=== PATIENT | female | born 1995 ===

== ENCOUNTER 2018-10-27 23:44 | Emergency (ER) | payer OTHER, SELFPAY ==
[2018-10-28] MEDS ORDERED: PEPCID PO ONE (00:45)
[2018-10-28] MEDS ORDERED: BANOPHEN PO ONE (00:45)
[2018-10-28] MEDS ORDERED: DELTASONE PO ONE (00:45)
--- NOTE | 2018-10-28 01:30 | Emergency Department Report ---
ED General Adult HPI - General Chief complaint: Allergic Reaction Stated complaint: POSS ALLERGIC REACTION Time Seen by Provider: 10/28/18 01:24 Source: patient, RN notes reviewed Mode of arrival: Ambulatory Limitations: No Limitations - History of Present Illness Initial comments: This is a pleasant 23-year-old female who is not known to this provider previously. She reports that she is not , and reports no chronic medical conditions with the exception of shellfish intolerance. The patient consumed calamari,earlier on yesterday, and shortly thereafter, developed sensation of throat swelling, and lipid feeling numb. This is now resolved. She has no complaints at this time. She reports no physical pain at this time. She reports that she was not aware that this particular food was considered shellfish. -: Sudden Severity scale (0 -10): 0 Consistency: now resolved Improves with: none Worsens with: none - Related Data Previous Rx's Medication Instructions Recorded Last Taken Type EPINEPHrine [Epipen 2-Koby] 0.3 mg IM DAILY PRN #2 ml 10/28/18 Unknown Rx Famotidine [Pepcid] 20 mg PO BID #10 tablet 10/28/18 Unknown Rx diphenhydrAMINE [Benadryl] 50 mg PO Q8HR PRN #20 capsule 10/28/18 Unknown Rx Allergies Allergy/AdvReac Type Severity Reaction Status Date / Time shellfish derived Allergy Unknown Verified 10/27/18 23:47 ED Review of Systems ROS: Stated complaint: POSS ALLERGIC REACTION Other details as noted in HPI Constitutional: denies: fever Eyes: denies: eye discharge ENT: denies: ear pain, epistaxis, congestion Respiratory: denies: cough Cardiovascular: denies: chest pain Musculoskeletal: denies: back pain Skin: pruritus Neurological: denies: weakness Psychiatric: denies: anxiety ED Past Medical Hx - Past Medical History Previous Medical History?: Yes Additional medical history: irritable bowel syndrome - Surgical History Past Surgical History?: No - Social History Smoking Status: Never Smoker Substance Use Type: Alcohol - Medications Home Medications: Home Medications Medication Instructions Recorded Confirmed Last Taken Type EPINEPHrine [Epipen 2-Koby] 0.3 mg IM DAILY PRN #2 ml 10/28/18 Unknown Rx Famotidine [Pepcid] 20 mg PO BID #10 tablet 10/28/18 Unknown Rx diphenhydrAMINE [Benadryl] 50 mg PO Q8HR PRN #20 capsule 10/28/18 Unknown Rx ED Physical Exam - General Limitations: No Limitations General appearance: alert, in no apparent distress - Head Head exam: Present: atraumatic, normocephalic - Eye Eye exam: Present: normal appearance, EOMI. Absent: nystagmus - ENT ENT exam: Present: normal exam, normal orophraynx, mucous membranes moist, normal external ear exam, other (the patient is speaking in full sentences. There is no stridor, there is no dysphonia.) - Neck Neck exam: Present: normal inspection, full ROM. Absent: tenderness, meningismus - Respiratory Respiratory exam: Present: normal lung sounds bilaterally. Absent: respiratory distress - Cardiovascular Cardiovascular Exam: Present: regular rate, normal rhythm, normal heart sounds. Absent: bradycardia, tachycardia, irregular rhythm, systolic murmur, diastolic murmur, rubs, gallop - GI/Abdominal GI/Abdominal exam: Present: soft. Absent: distended, tenderness, guarding, rebound, rigid, pulsatile mass - Extremities Exam Extremities exam: Present: normal inspection, full ROM, other (2+ pulses noted in the bilateral upper, lower extremities. Compartments soft. No long bony tenderness. The pelvis is stable.). Absent: pedal edema, joint swelling, calf tenderness - Back Exam Back exam: Present: normal inspection, full ROM. Absent: tenderness, CVA tenderness (R), paraspinal tenderness, vertebral tenderness - Neurological Exam Neurological exam: Present: alert, normal gait, other (Extraocular movements intact. Tongue midline. No facial droop. Facial sensation intact to light touch in the V1, V2, V3 distribution bilaterally. 5 and 5 strength in 4 extremities.. Sensation is intact to light touch in 4 extremities.). Absent: motor sensory deficit - Psychiatric Psychiatric exam: Present: normal affect, normal mood - Skin Skin exam: Present: warm, dry, intact, normal color. Absent: rash ED Course Vital Signs 10/27/18 10/28/18 10/28/18 23:50 00:01 00:06 Temperature 98.9 F 98.4 F Pulse Rate 96 H 101 H 105 H Respiratory 18 17 20 Rate Blood Pressure 134/81 114/74 114/74 Blood Pressure 114/74 [Left] O2 Sat by Pulse 99 99 99 Oximetry ED Medical Decision Making - Lab Data Vital Signs 10/27/18 10/28/1810/28/19 23:50 00:01 00:06 Temperature 98.9 F 98.4 F Pulse Rate 96 H 101 H 105 H Respiratory 18 17 20 Rate Blood Pressure 134/81 114/74 114/74 Blood Pressure 114/74 [Left] O2 Sat by Pulse 99 99 99 Oximetry - Medical Decision Making Differential diagnosis, including but not limited to: Shellfish allergy, shellfish and tolerance Assessment and plan: 23-year-old female with clinically resolved allergic reaction to presumed shellfish ingestion. Patient somewhat anxious, but on my examination, is not tachycardic. She has no stridor or dysphonia, no external cutaneous skin lesions, and appears to be in no acute distress. She will be discharged with as needed epinephrine pen, as needed Benadryl, and as needed Pepcid. She is instructed to not consume shellfish. She can follow up with an outpatient career transition specialist for specialized skin testing, and evaluation for potential desensitization. Critical care attestation.: If time is entered above; I have spent that time in minutes in the direct care of this critically ill patient, excluding procedure time. ED Disposition Clinical Impression: History of allergy to shellfish Disposition: DC-01 TO HOME OR SELFCARE Is pt being admited?: No Does the pt Need Aspirin: No Condition: Good Instructions: Anaphylaxis (ED), Food Allergy (ED) Additional Instructions: Avoid consumption of shellfish, crustations,, and take the medications as needed/directed. Follow up with an career transition specialist for specialized skin testing to determine what specific food groups patient is allergic/intolerance to, and to determine if patient is a candidate for allergy desensitization therapy. Follow up with an career transition specialist within the next 4-6 weeks. Use the medications as needed or directed. Use the epinephrine pen only if patient develops inability to speak, inability to breathe, loss of consciousness. Please return to the emergency room right away with new, worsening or different symptoms. Referrals: BRITTNEY LUCAS MD [Referring] - 3-5 Days BAILEY GANDHI MD [Referring] - 3-5 Days [facility] [Provider Group] - 3-5 Days [facility] [Provider Group] - 3-5 Days
[2018-10-28 01:59] VITALS: BP 98/52
== END 2018-10-28 01:40 | disposition home or self-care (01) ==
LOC: ED 23:44
DX: T78.1XXA Other adverse food reactions, not elsewhere classified, initial encounter (principal); X58.XXXA Exposure to other specified factors, initial encounter; Z91.013 Allergy to seafood
CPT/HCPCS: 99282; J7512; Q0163

== ENCOUNTER 2019-10-31 16:29 | Emergency (ER) | payer SELFPAY ==
--- NOTE | 2019-10-31 17:27 | XRay Report ---
CHEST 2 VIEWS INDICATION / CLINICAL INFORMATION: CP. COMPARISON: None available. FINDINGS: SUPPORT DEVICES: None. HEART / MEDIASTINUM: No significant abnormality. LUNGS / PLEURA: No significant pulmonary or pleural abnormality. No pneumothorax. ADDITIONAL FINDINGS: No significant additional findings. IMPRESSION: 1. No acute findings. Signer Name: Montana Quintero MD Signed: 10/31/2019 5:23 PM Workstation Name: [id number]
--- NOTE | 2019-10-31 17:51 | Emergency Department Report ---
ED Chest Pain HPI - General Chief Complaint: Chest Pain Stated Complaint: CHEST PAIN L ARM TINGLE Time Seen by Provider: 10/31/19 17:34 Source: patient Mode of arrival: Ambulatory Limitations: No Limitations - History of Present Illness Initial Comments: Patient is a 24-year-old female presents emergency room with complaints of left- sided chest pain that began at 3:30 PM today. She describes the pain as a pressure. She states that she also has tingling in the left arm. She states that she felt lightheaded. She denies any cough, fever, leg swelling, shortness of breath, pleuritic chest pain, nausea, vomiting, diarrhea. She denies ever having this in the past. She denies any recent travel, recent surgery, hormone use. She denies any family or personal cardiac history or history of DVT/PE. She has a past medical history of IBS. She has an allergy to shellfish. - Related Data Previous Rx's Medication Instructions Recorded Last Taken Type EPINEPHrine [Epipen 2-Koby] 0.3 mg IM DAILY PRN #2 ml 10/28/18 Unknown Rx Famotidine [Pepcid] 20 mg PO BID #10 tablet 10/28/18 Unknown Rx diphenhydrAMINE [Benadryl] 50 mg PO Q8HR PRN #20 capsule 10/28/18 Unknown Rx Allergies Allergy/AdvReac Type Severity Reaction Status Date / Time shellfish derived Allergy Unknown Verified 10/27/18 23:47 Heart Score - HEART Score History: Slightly suspicious EKG: Normal Age: < 45 Risk factors: No known risk factors Troponin: < normal limit HEART Score: 0 ED Review of Systems ROS: Stated complaint: CHEST PAIN L ARM TINGLE Other details as noted in HPI Comment: All other systems reviewed and negative ED Past Medical Hx - Past Medical History Previous Medical History?: Yes Additional medical history: irritable bowel syndrome - Surgical History Past Surgical History?: No - Social History Smoking Status: Never Smoker Substance Use Type: None - Medications Home Medications: Home Medications Medication Instructions Recorded Confirmed Last Taken Type EPINEPHrine [Epipen 2-Koby] 0.3 mg IM DAILY PRN #2 ml 10/28/18 Unknown Rx Famotidine [Pepcid] 20 mg PO BID #10 tablet 10/28/18 Unknown Rx diphenhydrAMINE [Benadryl] 50 mg PO Q8HR PRN #20 capsule 10/28/18 Unknown Rx ED Physical Exam - General Limitations: No Limitations General appearance: alert, in no apparent distress - Head Head exam: Present: atraumatic, normocephalic - Eye Eye exam: Present: normal appearance - ENT ENT exam: Present: mucous membranes moist - Respiratory Respiratory exam: Present: normal lung sounds bilaterally. Absent: respiratory distress, wheezes, rales, rhonchi, stridor, chest wall tenderness, accessory muscle use, decreased breath sounds, prolonged expiratory - Cardiovascular Cardiovascular Exam: Present: regular rate, normal rhythm, normal heart sounds. Absent: systolic murmur, diastolic murmur, rubs, gallop - Neurological Exam Neurological exam: Present: alert, oriented X3 - Psychiatric Psychiatric exam: Present: normal affect, normal mood - Skin Skin exam: Present: warm, dry, intact ED Course Vital Signs 10/31/19 10/31/19 16:36 19:45 Temperature 98.5 F 97.9 F Pulse Rate 100 H 88 Respiratory 18 18 Rate Blood Pressure 130/70 Blood Pressure 117/79 [Left] O2 Sat by Pulse 100 98 Oximetry ELIU score - Eliu Score Age > 65: (0) No Aspirin use within the Past 7 Days: (0) No 3 or more CAD Risk Factors: (0) No 2 or more Angina events in past 24 hrs: (0) No Known CAD with more than 50% Stenosis: (0) No Elevated Cardiac Markers: (0) No ST Deviation Greater than 0.5mm: (0) No ELIU Score: 0 ED Medical Decision Making - Lab Data Result diagrams: 10/31/19 17:46 10/31/19 17:46 Lab Results 10/31/19 10/31/19 10/31/19 Range/Units 17:46 17:46 17:46 WBC 9.3 (4.5-11.0) K/mm3 RBC 4.16 (3.65-5.03) M/mm3 Hgb 13.6 (10.1-14.3) gm/dl Hct 39.3 (30.3-42.9) % MCV 95 (79-97) fl MCH 33 H (28-32) pg MCHC 35 H (30-34) % RDW 12.8 L (13.2-15.2) % Plt Count 239 (140-440) K/mm3 Lymph % (Auto) 39.8 H (13.4-35.0) % Morrill % (Auto) 7.1 (0.0-7.3) % Eos % (Auto) 1.2 (0.0-4.3) % Baso % (Auto) 0.4 (0.0-1.8) % Lymph # 3.7 (1.2-5.4) K/mm3 Morrill # 0.7 (0.0-0.8) K/mm3 Eos # 0.1 (0.0-0.4) K/mm3 Baso # 0.0 (0.0-0.1) K/mm3 Seg Neutrophils % 51.5 (40.0-70.0) % Seg Neutrophils # 4.8 (1.8-7.7) K/mm3 Sodium 137 (137-145) mmol/L Potassium 3.2 L (3.6-5.0) mmol/L Chloride 98.6 (98-107) mmol/L Carbon Dioxide 28 (22-30) mmol/L Anion Gap 14 mmol/L BUN 19 H (7-17) mg/dL Creatinine 0.7 (0.7-1.2) mg/dL Estimated GFR > 60 ml/min BUN/Creatinine Ratio 27 % Glucose 131 H (65-100) mg/dL Calcium 9.1 (8.4-10.2) mg/dL Magnesium 2.00 (1.7-2.3) mg/dL Total Bilirubin 0.20 (0.1-1.2) mg/dL AST 15 (5-40) units/L ALT 19 (7-56) units/L Alkaline Phosphatase 61 (35-129) units/L Total Creatine Kinase 33 (30-135) units/L Troponin T < 0.010 (0.00-0.029) ng/mL Total Protein 7.6 (6.3-8.2) g/dL Albumin 4.4 (3.9-5) g/dL Albumin/Globulin Ratio 1.4 % HCG, Qual Negative (Negative) Vital Signs 10/31/19 10/31/19 16:36 19:45 Temperature 98.5 F 97.9 F Pulse Rate 100 H 88 Respiratory 18 18 Rate Blood Pressure 130/70 Blood Pressure 117/79 [Left] O2 Sat by Pulse 100 98 Oximetry - EKG Data EKG shows normal: axis, intervals, QRS complexes, ST-T waves - EKG Data 10/31/19 17:51 Sinus arrhythmia No STEMI - Radiology Data Radiology results: report reviewed CHEST 2 VIEWS INDICATION / CLINICAL INFORMATION: CP. COMPARISON: None available. FINDINGS: SUPPORT DEVICES: None. HEART / MEDIASTINUM: No significant abnormality. LUNGS / PLEURA: No significant pulmonary or pleural abnormality. No pneumothorax. ADDITIONAL FINDINGS: No significant additional findings. IMPRESSION: 1. No acute findings. Signer Name: Montana Quintero MD Signed: 10/31/2019 5:23 PM Workstation Name: [id number] Transcribed By: ANTONETTE Dictated By: Montana Quintero MD Electronically Authenticated By: Montana Quintero MD Signed Date/Time: 10/31/191722 DD/ 22 TD/TT: - Medical Decision Making Patient is a 24-year-old female presents emergency room with complaints of left- sided chest pain that began at 3:30 PM today. She describes the pain as a pressure. She states that she also has tingling in the left arm. She states that she felt lightheaded. She denies any cough, fever, leg swelling, shortness of breath, pleuritic chest pain, nausea, vomiting, diarrhea. She denies ever having this in the past. She denies any recent travel, recent surgery, hormone use. She denies any family or personal cardiac history or history of DVT/PE. She has a past medical history of IBS. She has an allergy to shellfish. Vitals are stable. No abnormality on physical exam as documented in chart. Labs with hypokalemia at 3.2, repleted with K-Dur. Troponin is negative. EKG with sinus arrhythmia otherwise normal. Chest x-ray with no acute findings. Patient will be referred to outpatient cardiology and to her primary care doctor. Well score is 0, PE very unlikely. Heart score is 0, ELIU score is 0 very low risk for cardiac event. advised pt Please increase your water intake. Please increase your oral potassium intake. Avoid caffeine use. Follow-up with a primary care doctor. Follow-up with a study assistant. Return to emergency room for any new or worsening symptoms. - Differential Diagnosis Anxiety, anemia, electrolyte disturbance, MVP, arrhythmia, CM, ACS Critical care attestation.: If time is entered above; I have spent that time in minutes in the direct care of this critically ill patient, excluding procedure time. ED Disposition Clinical Impression: Tingling, Lightheadedness, Hypokalemia Chest pain Qualifiers: Chest pain type: unspecified Qualified Code(s): R07.9 - Chest pain, unspecified Disposition: DC- TO HOME OR SELFCARE Is pt being admited?: No Does the pt Need Aspirin: No Condition: Stable Instructions: Chest Pain (ED), Hypokalemia (ED) Additional Instructions: Please increase your water intake. Please increase your oral potassium intake. Avoid caffeine use. Follow-up with a primary care doctor. Follow-up with a study assistant. Return to emergency room for any new or worsening symptoms. Referrals: PRIMARY CARE, [Primary Care Provider] - 2-3 Days DAIN BOWERS MD [Staff Physician] - 2-3 Days Time of Disposition: 18:57 Print Language: MAURITIAN
[2019-10-31 18:06] LABS: Basophils % (Auto) 0.4 % (0.0-1.8); Eosinophils # (Auto) 0.1 K/mm3 (0.0-0.4); Eosinophils % (Auto) 1.2 % (0.0-4.3); Hematocrit 39.3 % (30.3-42.9); Hemoglobin 13.6 gm/dl (10.1-14.3); Lymphocytes # (Auto) 3.7 K/mm3 (1.2-5.4); Lymphocytes % (Auto) 39.8 % (13.4-35.0); Mean Corpuscular HGB Conc 35 % (30-34); Mean Corpuscular Volume 95 fl (79-97); Monocytes # (Auto) 0.7 K/mm3 (0.0-0.8); Monocytes % (Auto) 7.1 % (0.0-7.3); Platelet Count 239 K/mm3 (140-440); Red Blood Count 4.16 M/mm3 (3.65-5.03); Red Cell Distribution Width 12.8 % (13.2-15.2)
[2019-10-31 18:18] LABS: Alanine Aminotransferase 19 units/L (7-56); Albumin 4.4 g/dL (3.9-5); BUN/Creatinine Ratio 27; Blood Urea Nitrogen 19 mg/dL (7-17); Calcium 9.1 mg/dL (8.4-10.2); Hemolysis Index 5
[2019-10-31] MEDS ORDERED: POTASSIUM CHLORIDE ER 20 MEQ TAB PO ONE (18:18)
[2019-10-31 19:53] VITALS: BP 117/79
== END 2019-10-31 19:54 | disposition home or self-care (01) ==
LOC: ED 16:29
DX: E87.6 Hypokalemia (principal); R20.2 Paresthesia of skin; R42 Dizziness and giddiness; R07.89 Other chest pain; Z79.899 Other long term (current) drug therapy; Z91.013 Allergy to seafood
CPT/HCPCS: 36415; 71046; 80053; 82550; 83735; 84484; 84703; 85025; 93005